=== PATIENT | male | born 1950 | race Caucasian/White ===

== ENCOUNTER 2019-07-25 17:13 | Emergency (ER) | payer MEDICARE ==
[~2019-07-25] VITALS: Ht 167.6 cm; Wt 100.0 kg
[2019-07-25 17:34] VITALS: TEMP 98.1
[2019-07-25] MEDS ORDERED: PRINIVIL20 MG PO (17:57)
[2019-07-25] MEDS ORDERED: LIPITOR 10MG10 MG PO (17:58)
[2019-07-25] MEDS ORDERED: FLOMAX 0.40.4 MG/CAP PO (17:59)
[2019-07-25] MEDS ORDERED: PROSCAR 5MG5 MG PO (17:59)
[2019-07-25] MEDS ORDERED: ASPIRIN 81M81 MG/TA2 PO (18:00)
[2019-07-25] MEDS ORDERED: COREG 6.256.25 MG/TA PO (18:00)
[2019-07-25 18:49] VITALS: BP 136/88; PULSE 79
== END 2019-07-25 18:51 | disposition short-term general hospital (02) ==
LOC: COL.ER 17:13
DX: H54.62 Unqualified visual loss, left eye, normal vision right eye (principal); I10 Essential (primary) hypertension; E78.00 Pure hypercholesterolemia, unspecified; G43.909 Migraine, unspecified, not intractable, without status migrainosus; Z79.82 Long term (current) use of aspirin